=== PATIENT | female | born 2000 | race Caucasian/White ===

== ENCOUNTER 2019-08-10 10:46 | Emergency (ER) | payer BC, SELFPAY ==
--- NOTE | ~2019-08-10 | CT_ITS ---
EXAMINATION: CT abdomen pelvis w con DATE: 08/10/2019 12:47 INDICATION: Right-sided abdominal pain TECHNIQUE: Computed tomography (CT) of the abdomen and pelvis was performed with 100 mL Omnipaque-350 intravenous contrast. Automated exposure control and iterative reconstruction technique were employe d. The dose-length product was 199.90 mGy-cm. COMPARISON: None FINDINGS: Lung bases are clear. Visualized inferior portion of the heart is normal. No pericardial or pleural e ffusion. Liver, gallbladder, spleen, pancreas, bilateral adrenal glands and kidneys are normal. Sarah l appendix. No abnormal bowel wall thickening or obstruction. Decompressed bladder and retroverted ut erus are unremarkable. 1.8 cm peripherally enhancing likely corpus luteum cyst in the left ovary. Tra ce amount of likely physiologic free fluid in the pelvis. No pathologically enlarged abdominal or pel colin lymphadenopathy. Bones are unremarkable. IMPRESSION: 1. Normal gallbladder and appendix. No acute intra-abdominal/pelvic process. Reviewed, dictated and finalized at location A.
[2019-08-10 10:51] VITALS: BP 101/58; PULSE 70; RESP 18; TEMP 36.3; O2SAT 100
--- NOTE | 2019-08-10 11:20 | PC.NURSE ---
Patient unable to give urine sample at this time, will attempt again later. Patient declines straight cath at this time
--- NOTE | 2019-08-10 11:32 | ED.GENADULT ---
HPI - General Adult General Chief complaint: Abdominal Pain Stated complaint: abdominal pain Time Seen by Provider: 08/10/19 11:18 Source: patient Mode of arrival: ambulatory Limitations: no limitations History of Present Illness HPI narrative: 17-year-old female patient presents to the emergency department with complaints of abdominal pain that started this morning. Patient states that she was standing trying to cook some food this morning when she suddenly got 10 out of 10 sharp abdominal pain mostly to the middle of the belly. Patient states that she did vomit this morning. Patient does admit to alcohol use yesterday. Patient denies any fevers. Patient states that she is currently on her period and started yesterday. Patient states she was concerned because she did sleep overnight with a tampon in and took it out this morning. Denies any pain with urination or vaginal discharge. Patient states she is currently not sexually active and has no concerns for STDs. Patient denies or breast-feeding. Patient states that the pain is better than it was this morning. Patient rates her pain currently 4 out of 10. Related Data Home Medications Medication Instructions Recorded Confirmed No Home Medications 08/10/19 08/10/19 Allergies Allergy/AdvReac Type Severity Reaction Status Date / Time amoxicillin [From Augmentin] AdvReac Mild Vomiting Verified 08/10/19 11:42 clavulanic acid AdvReac Mild Vomiting Verified 08/10/19 11:42 [From Augmentin] Review of Systems Review of Systems: Narrative: CONSTITUTIONAL: Denies fever, chills, or sweats. EYES: Denies visual changes, redness, or discharge. ENT: Denies rhinorrhea, congestion, sore throat, or otalgia. CARDIOVASCULAR: Denies chest pain, palpitations, or edema. RESPIRATORY: Denies cough or dyspnea. GASTROINTESTINAL: Positive abdominal pain, nausea, vomiting, denies diarrhea. GENITOURINARY: Denies dysuria or hematuria. SKIN: Denies rash or itching. MUSCULOSKELETAL: Denies back pain, joint pain, or myalgia. NEUROLOGIC: Denies headache, numbness, or weakness. PSYCHIATRIC: Denies anxiety or depression. [facility] Social History Social History Gender identity (if verbalized by the patient): Female Comments At the time of my signature I agree with nursing past medical history, surgical, social, and family history. There is no relevant family history pertinent to the presenting complaint. Exam Narrative: Exam Narrative: GENERAL: Well-appearing, well-nourished, and in no acute distress. HEAD: Normocephalic, atraumatic. EYES: PERRLA and EOMI. ENT: Nares clear, no rhinorrhea or epistaxis. Mucous membranes moist. NECK: Supple. No lymphadenopathy CHEST: Clear to auscultation. No respiratory distress. HEART: Regular rate and rhythm. No murmur heard. Normal peripheral pulses. ABDOMEN: Soft, flat, nondistended. No guarding, rebound tenderness, or rigid. Pain on palpation to the right upper quadrant, right lower quadrant and umbilical area. No pulsatilla masses. Bowel sounds present in all four quadrants. No organomegaly. Negative Mcgregor?s sign. No periumbicial tenderness. No Supra public tenderness or distension. Good femoral pulses bilaterally. No hernia noted. No scars or surface trauma. EXTREMITIES: Normal range of motion. No edema. SKIN: Warm, dry, no rash. NEURO: No focal deficits. Alert and oriented x3. Course Reevaluation(s) Reevaluation #1: Reevaluated patient. Patient is resting comfortably on stretcher and states that her pain is much better and is feeling better after receiving the fluid. Discussed with her that her CT is unremarkable for any appendicitis or gallbladder disease. Discussed with her that she does have a small cyst noted to the left ovary. Discussed with her I think that the combination of that plus drinking alcohol yesterday and possibly being a little dehydrated could have what caused her symptoms t
[2019-08-10] MEDS: SODIUM CHLORIDE 0.9% IV 1,000 ML 999 ML IV CONT (12:03)
[2019-08-10] MEDS: ONDANSETRON INJ 4 MG/2 ML VIAL IV PUSH (12:03)
[2019-08-10 12:13] LABS: Basophils Percent Auto 0.3 % (0.2-1.2); Eosinophils Absolute Auto 0.1 K/mm3 (0-0.3); Eosinophils Percent Auto 0.8 % (0-4.4); Hematocrit 38.9 % (37.0-47.0); Hemoglobin 13.5 g/dL (12.0-15.0); Immature Granulocyte Absolute 0.03 K/mm3 (0.00-0.031); Immature Granulocyte Percent A 0.3 % (0-0.5); Lymphocytes Absolute Auto 0.68 K/mm3 (0.9-3.2); Lymphocytes Percent Auto 7.1 % (18.3-44.2); Mean Corpuscular HGB Conc 34.7 g/dl (32-36); Mean Corpuscular Hemoglobin 32.2 pg (26-34); Mean Corpuscular Volume 92.8 fl (80-100); Mean Platelet Volume 9.8 fl (7.4-10.4); Monocytes Absolute Auto 0.6 K/mm3 (0.1-0.6); Neutrophils Absolute Auto 8.2 K/mm3 (1.3-6.7); Neutrophils Percent Auto 85.5 % (45.5-73.1); Platelet Count Result 284 k/mm3 (150-375); Red Blood Count 4.19 M/mm3 (4.2-5.4); Red Cell Distribution Width 12.8 % (11.5-14.5); White Blood Count 9.6 K/mm3 (4.5-10.0)
[2019-08-10 12:25] LABS: Alanine Aminotransferase 14 U/L (4-35); Albumin Level 4.8 g/dL (3.7-5.6); Alkaline Phosphatase 62 U/L (45-116); Aspartate Amino Transferase 25 U/L (14-36); Bilirubin,Total 0.3 mg/dL (0.2-1.3); Blood Urea Nitrogen 12 mg/dL (8-21); Calcium 9.3 mg/dL (8.9-10.7); Carbon Dioxide 24 mmol/L (22-30); Chloride 105 mmol/L (98-107); Estimated CRCL calculation 108 ml/min; Estimated Glomerular Filt Rate > 60; Glucose 89 mg/dL (65-105); Lipase 35 U/L (23-300); Potassium 4.4 mmol/L (3.4-5.0); Sodium 138 mmol/L (134-143)
[2019-08-10 13:08] LABS: Add Urine Microscopic? YES; Appearance Urine Clear (Clear); Bilirubin Urine Negative (Negative); Blood Urine 3+ (Negative); Color Urine Yellow (Yellow); Glucose Urine UA 1+ mg/dL (Negative); Ketones Urine Negative (Negative); Leukocyte Esterase Ur Trace LEU/UL (Negative); Mucus Urine Few /lpf; Nitrate Urine Negative (Negative); Protein Urine 2+ mg/dL (Negative); RBC Urine >75 /hpf (0-2); Specific Grav Ur 1.024 (1.001-1.035); Squamous Epithelial Cell Urine Many /hpf (Few); Urobilinogen Urine Negative mg/dL (<2.0)
--- NOTE | 2019-08-17 12:07 | PC.NURSE ---
LATE ENTRY This note is being entered to document information to the patient's record. The following information was omitted on [08/10/2019], by [SHAQ Fernandez]. NS 1000ml infused with a stop time of 1300.
== END 2019-08-10 13:37 | disposition home or self-care (01) ==
PROVIDERS: Emergency Medicine; Emergency Provider Nurse Practitioner Family
DX: N83.202 Unspecified ovarian cyst, left side (principal)
CPT/HCPCS: 36415; 74177; 80053; 81001; 81025; 83690; 85025; 87077; 87086; 87088; 96361; 96374; 99284; J2405; J7030; Q9967

== ENCOUNTER 2020-02-20 14:23 | Emergency (ER) | payer BC, SELFPAY ==
--- NOTE | ~2020-02-20 | XR_ITS ---
EXAMINATION: XR elbow RT min 3V EXAM DATE: 02/20/2020 14:42 INDICATION: Pain after snowboarding one week ago then fell yesterday. Initial encounter. TECHNIQUE: Right elbow frontal, lateral with flexion, and oblique projections obtained and reviewed. There is no prior study for comparison. FINDINGS: Right elbow anterior humeral line intact. There are no acute fractures or dislocations alejandra ntified. There is no subcutaneous gas. The soft tissue is unremarkable. There are no radiopaque f oreign bodies. IMPRESSION: No acute osseous findings. Reviewed, dictated and finalized at location B. [facility] IMPRESSION: No acute osseous findings.
[2020-02-20 14:31] VITALS: BP 122/84; PULSE 89; RESP 16; TEMP 36.3; O2SAT 99
--- NOTE | 2020-02-20 14:48 | ED.UPPEXIN ---
HPI - Extremity Injury (Upper) General Chief Complaint: Extremity Injury, Upper Stated Complaint: rt arm injury Time Seen by Provider: 02/20/20 14:25 Source: patient and RN notes reviewed History of Present Illness HPI narrative: Patient is a 19-year-old female who presents the urgent care with complaints of right forearm pain. Patient states that she went snowboarding approximately 1 week ago and fell several times onto her right arm. Patient states that it was sore however, her fall last night into a malcolm caused increased pain and swelling. Patient states that she is unable to rotate the arm without severe pain. Patient is right-hand dominant. Denies of any blunt force trauma to the arm. Denies of any other injuries from the fall. No other acute complaints. No acute distress noted. Patient read the plan of care. Some parts of this dictation were generated by voice recognition software and may contain typographical and/or grammatical inaccuracies. Related Data Home Medications Medication Instructions Recorded Confirmed No Home Medications 08/10/19 08/10/19 Allergies Allergy/AdvReac Type Severity Reaction Status Date / Time amoxicillin [From Augmentin] AdvReac Mild Vomiting Verified 08/10/19 11:42 clavulanic acid AdvReac Mild Vomiting Verified 08/10/19 11:42 [From Augmentin] Review of Systems Review of Systems: Narrative: CONSTITUTIONAL: Denies fever, chills, or sweats. EYES: Denies visual changes, redness, or discharge. ENT: Denies rhinorrhea, congestion, sore throat, or otalgia. CARDIOVASCULAR: Denies chest pain, palpitations, or edema. RESPIRATORY: Denies cough or dyspnea. GASTROINTESTINAL: Denies abdominal pain, nausea, vomiting, or diarrhea. GENITOURINARY: Denies dysuria or hematuria. SKIN: Denies rash or itching. MUSCULOSKELETAL: Reports of right forearm pain and swelling NEUROLOGIC: Denies headache, numbness, or weakness. All other systems reviewed are negative, except as documented in HPI. [facility] Social History Social History Gender identity (if verbalized by the patient): Female Comments At the time of my signature, I reviewed and agree with the nursing past medical, surgical, social, and family history. There is no relevant family history pertinent to the patient complaint. Exam Narrative: Exam Narrative: GENERAL: This is a well-nourished, well-developed patient, in no apparent distress. HEAD: normocephalic, atraumatic. EYES: PERRL. Sclera clear/white. Vision is grossly intact. EARS: External ears normal, auditory canals clear and without drainage, TMs normal without perforation. Hearing grossly intact. NOSE: External nose normal with no obvious nasal discharge, nares without redness, no rhinorrhea. THROAT: Mucous membranes moist, posterior pharynx clear. NECK: Neck supple, non-tender without lymphadenopathy, masses or thyromegaly. CARDIOVASCULAR: Regular rate and rhythm without murmurs, gallops, or rubs. RESPIRATORY: Clear to auscultation. Breath sounds equal bilaterally. No wheezes, rales, or rhonchi. GASTROINTESTINAL: Abdomen soft, non-tender, nondistended. Bowel sounds are active. No hepato-splenomegaly, or palpable masses. No guarding. SKIN: warm, intact with no suspicious lesions or rash, good texture and turgor. NEURO: awake, alert, and oriented to person, place and time. There were no obvious focal neurologic abnormalities. EXTREMITIES: Right upper extremity?range of motion limited due to pain. Unable to rotate the right upper extremity without severe pain. Pain exacerbated with making a fist. Notable edema and possible deformity noted to the radial head of the right upper extremity. Positive strong right radial pulse with capillary refill less than 2 seconds. Course Vital Signs Vital signs: Vital Signs Temperature 97.4 F L 02/20/20 14:31 Pulse Rate 89 02/20/20 14:31 Respiratory Rate 16 02/20/20 14:31 Blood Pressure 122/84
== END 2020-02-20 15:21 | disposition home or self-care (01) ==
PROVIDERS: Emergency Provider Nurse Practitioner Family
DX: S40.021A Contusion of right upper arm, initial encounter (principal); V00.311A Fall from snowboard, initial encounter
CPT/HCPCS: 73080; 99213; A4565; G0463